=== PATIENT | male | born 1985 | race African-American/Black ===

== ENCOUNTER 2017-12-06 11:21 | Observation (INO) | payer SELFPAY ==
[~2017-12-06] VITALS: Ht 175.3 cm; Wt 105.8 kg
[2017-12-06 11:52] LABS: HEMATOCRIT 41.8 % (39.0-50.0); HEMOGLOBIN 14.3 g/dl (14.0-18.0); IMMATURE GRANULOCYTES 0.4 % (0.0-5.0); MEAN CORPUSCULAR HGB 30.1 pG CALC (26.0-32.0); MEAN CORPUSCULAR HGB CONC 34.2 g/L CALC (32.0-36.0); NEUT# 3.05 thou/uL (1.82-7.42); RED BLOOD COUNT 4.75 mill/uL (4.70-6.10); RED CELL DISTRI WIDTH 12.1 % (11.5-15.5)
[2017-12-06 12:03] LABS: ANION GAP 15 (6-22 (CALC)); BUN 17 mg/dL (9-20); BUN/CREATININE RATIO 13 (12-20 (CALC)); CARBON DIOXIDE 30 mmol/l (22-30); CHLORIDE 105 mmol/l (95-108); CREATININE 1.3 mg/dL (0.7-1.3); GFR > 60 ML/MIN (>=60 (CALC)); GFR FOR AFR.AMER. > 60 ML/MIN (>=60 (CALC)); POTASSIUM 4.5 mmol/l (3.5-5.1); SODIUM 145 mmol/l (137-146)
[2017-12-06 13:20] VITALS: BP 123/66
[2017-12-06 16:00] VITALS: BP 116/68
[2017-12-06 19:18] LABS: URINE BILIRUBIN - DIPSTICK NEGATIVE (NEGATIVE); URINE BLOOD DIPSTICK TRACE-INTACT (NEGATIVE); URINE COLOR YELLOW; URINE GLUCOSE - DIPSTICK NEGATIVE (NEGATIVE); URINE KETONE NEGATIVE (NEGATIVE); URINE LEUK ESTERASE NEGATIVE (Negative); URINE NITRITE - DIPSTICK NEGATIVE (Negative); URINE PROTEIN - DIPSTICK NEGATIVE (NEG-TRACE); URINE SPECIFIC GRAVITY 1.025; URINE UROBILINOGEN - DIPSTICK 0.2 E.U./dL (0.2)
[2017-12-06 19:19] LABS: URINE CLARITY CLEAR
[2017-12-06 19:40] VITALS: BP 119/71
[2017-12-06 23:55] LABS: IMMATURE GRANULOCYTES 0.3 % (0.0-5.0); MEAN CELL VOLUME 90.7 fL CALC (80.0-100.0); MEAN CORPUSCULAR HGB 30.2 pG CALC (26.0-32.0); MEAN CORPUSCULAR HGB CONC 33.3 g/L CALC (32.0-36.0); NEUT# 3.89 thou/uL (1.82-7.42); RED BLOOD COUNT 3.87 mill/uL (4.70-6.10); RED CELL DISTRI WIDTH 12.4 % (11.5-15.5)
[2017-12-06 23:56] LABS: HEMATOCRIT 35.1 % (39.0-50.0); HEMOGLOBIN 11.7 g/dl (14.0-18.0)
[2017-12-07] VITALS (10 sets, daily range): BP systolic 111–138; BP diastolic 51–87
[2017-12-07 05:49] LABS: HEMATOCRIT 33.5 % (39.0-50.0); HEMOGLOBIN 11.3 g/dl (14.0-18.0); IMMATURE GRANULOCYTES 0.3 % (0.0-5.0); MEAN CELL VOLUME 89.8 fL CALC (80.0-100.0); MEAN CORPUSCULAR HGB 30.3 pG CALC (26.0-32.0); MEAN CORPUSCULAR HGB CONC 33.7 g/L CALC (32.0-36.0); NEUT# 7.62 thou/uL (1.82-7.42); RED BLOOD COUNT 3.73 mill/uL (4.70-6.10); RED CELL DISTRI WIDTH 12.4 % (11.5-15.5)
[2017-12-07 06:14] LABS: ANION GAP 14 (6-22 (CALC)); BUN 14 mg/dL (9-20); BUN/CREATININE RATIO 11 (12-20 (CALC)); CARBON DIOXIDE 28 mmol/l (22-30); CHLORIDE 106 mmol/l (95-108); CREATININE 1.3 mg/dL (0.7-1.3); GFR > 60 ML/MIN (>=60 (CALC)); GFR FOR AFR.AMER. > 60 ML/MIN (>=60 (CALC)); MAGNESIUM 1.6 mg/dL (1.6-2.3); SODIUM 143 mmol/l (137-146)
[2017-12-07 06:28] LABS: POTASSIUM 5.4 mmol/l (3.5-5.1)
[2017-12-07] MEDS ORDERED: BACTRIM DS1 TAB PO (12:15)
[2017-12-07] MEDS ORDERED: BENTYL10 MG PO (12:15)
[2017-12-07] MEDS ORDERED: TRAMADOL HCL50 MG PO (12:15)
== END 2017-12-07 14:35 | disposition home or self-care (01) | DRG 710 ==
LOC: ED 11:21 → ED-I 12:30 → ED 12:44 → MS2 12:45
PROVIDERS: Family Medicine; Urology; ADMIT Internal Medicine; ATTEND Internal Medicine
PROC: 0V9S3ZZ Drainage of Penis, Percutaneous Approach (ICD-10-PCS; principal; 2017-12-06)
PROC: 0V9S0ZZ Drainage of Penis, Open Approach (ICD-10-PCS; 2017-12-06)
DX: N48.30 Priapism, unspecified (principal); F17.200 Nicotine dependence, unspecified, uncomplicated
CPT/HCPCS: G0378

== ENCOUNTER 2020-06-05 08:51 | Emergency (ER) | payer BC ==
[~2020-06-05] VITALS: Ht 175.3 cm; Wt 105.0 kg
[~2020-06-05 08:51] MED LIST: BACTRIM DS1 TAB PO; BENTYL10 MG PO; TRAMADOL HCL50 MG PO
[2020-06-05] MEDS ORDERED: CHERATUSSIN PO (10:26)
[2020-06-05 10:55] VITALS: BP 141/72
== END 2020-06-05 10:55 | disposition home or self-care (01) | DRG 153 ==
LOC: ED 08:51
DX: J02.9 Acute pharyngitis, unspecified (principal); R05 Cough; Z20.822 Contact with and (suspected) exposure to COVID-19
CPT/HCPCS: J0561

== ENCOUNTER 2020-10-03 07:43 | Emergency (ER) | payer SELFPAY ==
[~2020-10-03] VITALS: Ht 175.3 cm; Wt 104.0 kg
[~2020-10-03 07:43] MED LIST changes: +CHERATUSSIN PO
[2020-10-03 09:31] LABS: IMMATURE GRANULOCYTES 0.2 % (0.0-5.0); MEAN CELL VOLUME 88.2 fL CALC (80.0-100.0); MEAN CORPUSCULAR HGB 29.9 pG CALC (26.0-32.0); MEAN CORPUSCULAR HGB CONC 33.9 g/dL CAL (32.0-36.0); NEUT# 2.51 thou/uL (1.82-7.42); RED BLOOD COUNT 4.98 mill/uL (4.70-6.10)
[2020-10-03 09:33] LABS: HEMATOCRIT 43.9 % (39.0-50.0); HEMOGLOBIN 14.9 g/dl (14.0-18.0)
[2020-10-03 09:39] LABS: ALBUMIN 4.1 g/dL (3.2-5.0); ALKALINE PHOSPHATASE 70 u/l (38-126); BILIRUBIN, TOTAL 0.9 mg/dL (0.0-1.4); BUN 14 mg/dL (9-20); BUN/CREATININE RATIO 12 (12-20 (CALC)); CARBON DIOXIDE 33 mmol/l (22-30); CHLORIDE 102 mmol/l (95-108); CREATININE 1.2 mg/dL (0.7-1.3); GFR > 60 ML/MIN (>=60 (CALC)); GFR FOR AFR.AMER. > 60 ML/MIN (>=60 (CALC)); SGOT/AST 39 u/l (17-59); SODIUM 142 mmol/l (137-146); TOTAL PROTEIN 7.8 g/dL (6.3-8.2)
[2020-10-03 09:51] LABS: ANION GAP 11 (6-22 (CALC)); POTASSIUM 4.2 mmol/l (3.5-5.1)
[2020-10-03] MEDS ORDERED: NAPROXEN500 MG PO (09:57)
[2020-10-03 10:08] VITALS: BP 128/90
== END 2020-10-03 10:15 | disposition home or self-care (01) | DRG 554 ==
LOC: ED 07:43
PROVIDERS: Emergency Medicine
DX: M10.071 Idiopathic gout, right ankle and foot (principal)

== ENCOUNTER 2022-01-07 19:24 | Emergency (ER) | payer OTHER ==
[~2022-01-07] VITALS: Ht 175.3 cm; Wt 106.8 kg
[~2022-01-07 19:24] MED LIST changes: +NAPROXEN500 MG PO
[2022-01-07 19:30] VITALS: BP 152/97
[2022-01-07] MEDS ORDERED: [UNRECOGNIZED DRUG - OTHER] MT (19:50)
[2022-01-07] MEDS ORDERED: TESSALON PERLE100 MG PO (19:50)
[2022-01-07] MEDS ORDERED: ZITHROMAX250 MG PO (19:50)
[2022-01-07 20:01] VITALS: BP 116/76
[2022-01-07 20:42] VITALS: BP 116/76
== END 2022-01-07 20:42 | disposition home or self-care (01) | DRG 153 ==
LOC: ED 19:24
DX: J02.9 Acute pharyngitis, unspecified (principal); J45.909 Unspecified asthma, uncomplicated; Z20.822 Contact with and (suspected) exposure to COVID-19

== ENCOUNTER 2023-10-12 00:03 | Emergency (ER) | payer OTHER ==
[~2023-10-12] VITALS: Ht 175.3 cm; Wt 107.0 kg
[~2023-10-12 00:03] MED LIST changes: +TESSALON PERLE100 MG PO; +ZITHROMAX250 MG PO; +[UNRECOGNIZED DRUG - OTHER] MT
[2023-10-12 00:13] VITALS: BP 129/77
[2023-10-12 00:15] VITALS: BP 134/87
[2023-10-12] MEDS ORDERED: KETOROLAC TROMETHAMINE 30 MG/ML SDV IM ONE (00:25)
[2023-10-12] MEDS ORDERED: predniSONE 20 MG/TAB PO ONE (00:25)
[2023-10-12] MEDS ORDERED: INDOCIN25 MG PO (00:28)
[2023-10-12] MEDS ORDERED: PREDNISONE50 MG PO (00:28)
[2023-10-12 00:31] VITALS: BP 133/82
[2023-10-12 00:34] VITALS: BP 134/87
== END 2023-10-12 00:49 | disposition home or self-care (01) | DRG 554 ==
LOC: ED 00:03
DX: M10.071 Idiopathic gout, right ankle and foot (principal)

== ENCOUNTER 2024-04-11 13:56 | Emergency (ER) | payer OTHER ==
[~2024-04-11] VITALS: Ht 175.3 cm; Wt 111.0 kg
[~2024-04-11 13:56] MED LIST changes: +INDOCIN25 MG PO; +PREDNISONE50 MG PO
[2024-04-11 14:07] VITALS: BP 147/93
[2024-04-11 14:15] VITALS: BP 165/104
[2024-04-11 14:30] VITALS: BP 156/94
[2024-04-11] MEDS ORDERED: FAMOTIDINE 10MG/ML 2ML SDV IV ONE (14:35)
[2024-04-11] MEDS ORDERED: DiphenhydrAMINE HCL 50 MG/ML SDV IV ONE (14:35)
[2024-04-11] MEDS ORDERED: methylPREDNISolone SODIUM SUCC 125 MG/2 ML SDV IV ONE (14:35)
[2024-04-11] MEDS ORDERED: IPRATROPIUM-Albuterol 0.5MG-2.5MG/3 ML NEB ONE ×2 (14:35)
[2024-04-11 15:00] VITALS: BP 144/94
[2024-04-11 15:00] LABS: BASO% 0.1 % (0-3); EOS% 0.6 % (0-8); HEMATOCRIT 41.9 % (39.0-50.0); HEMOGLOBIN 14.2 g/dl (14.0-18.0); IMMATURE GRANULOCYTES 0.6 % (0.0-5.0); LYMPH% 9.6 % (15-41); MEAN CELL VOLUME 88.4 fL CALC (80.0-100.0); MEAN CORPUSCULAR HGB CONC 33.9 g/dL CAL (32.0-36.0); NEUT# 5.59 thou/uL (1.82-7.42); NEUT% 81.1 % (42-76); RED BLOOD COUNT 4.74 mill/uL (4.70-6.10); RED CELL DISTRI WIDTH 11.7 % (11.5-15.5)
[2024-04-11 15:11] LABS: ALBUMIN 4.4 g/dL (3.2-5.0); BILIRUBIN, TOTAL 1.5 mg/dL (0.2-1.3); CREATININE 1.2 mg/dL (0.7-1.3); POTASSIUM 4.3 mmol/l (3.5-5.1); TOTAL PROTEIN 7.5 g/dL (6.3-8.2)
[2024-04-11] MEDS ORDERED: VENTOLIN HFA108 MCG PO (15:22)
[2024-04-11] MEDS ORDERED: IPRATROPIU0.5 MG/3 M IN (15:22)
[2024-04-11] MEDS ORDERED: PREDNISONE50 MG PO (15:22)
[2024-04-11 15:30] VITALS: BP 146/94
[2024-04-11 15:35] VITALS: BP 146/94
== END 2024-04-11 15:33 | disposition home or self-care (01) | DRG 153 ==
LOC: ED 13:56
PROVIDERS: Family Medicine
DX: J30.89 Other allergic rhinitis (principal)
CPT/HCPCS: J1200

== ENCOUNTER 2024-04-13 11:42 | Emergency (ER) | payer OTHER ==
[~2024-04-13] VITALS: Ht 175.3 cm; Wt 124.0 kg
[~2024-04-13 11:42] MED LIST changes: +IPRATROPIU0.5 MG/3 M IN; +VENTOLIN HFA108 MCG PO
[2024-04-13 12:47] VITALS: BP 137/92
[2024-04-13] MEDS ORDERED: ONDANSETRON HCl 4 MG/2 ML SDV IV ONE (12:50)
[2024-04-13] MEDS ORDERED: ONDANSETRON 4 MG/TAB ODT PO ONE (12:55)
[2024-04-13 13:01] VITALS: BP 149/103
[2024-04-13] MEDS ORDERED: guaiFENesin-CODEINE 200-20 MG/10 ML UDC PO ONE (13:15)
[2024-04-13] MEDS ORDERED: KETOROLAC TROMETHAMINE 30 MG/ML SDV IM ONE (13:15)
[2024-04-13] MEDS ORDERED: OSELTAMIVIR PHOSPHATE 75 MG/TAB CAP PO ONE (13:15)
[2024-04-13 13:16] VITALS: BP 141/95
[2024-04-13] MEDS ORDERED: BENZONATATE200 MG PO (13:24)
[2024-04-13] MEDS ORDERED: TAM75CAP PO (13:24)
[2024-04-13 13:30] VITALS: BP 157/103
[2024-04-13 13:46] VITALS: BP 162/99
== END 2024-04-13 14:00 | disposition home or self-care (01) | DRG 195 ==
LOC: ED 11:42
DX: J10.1 Influenza due to other identified influenza virus with other respiratory manifestations (principal)
CPT/HCPCS: J1100

== ENCOUNTER 2024-04-29 12:16 | Emergency (ER) | payer OTHER ==
[2024-04-29] VITALS (7 sets, daily range): BP systolic 133–155; BP diastolic 86–104
[~2024-04-29] VITALS: Ht 175.3 cm; Wt 112.0 kg
[~2024-04-29 12:16] MED LIST changes: +BENZONATATE200 MG PO; +TAM75CAP PO
[2024-04-29] MEDS ORDERED: AMOX/K CLAV875 M1 PO (16:01)
== END 2024-04-29 16:14 | disposition home or self-care (01) | DRG 153 ==
LOC: ED 12:16
DX: J32.9 Chronic sinusitis, unspecified (principal); J45.909 Unspecified asthma, uncomplicated; Z20.822 Contact with and (suspected) exposure to COVID-19